=== PATIENT | female | born 1990 | race Caucasian/White ===

== ENCOUNTER 2018-10-17 16:49 | Inpatient (IN) | payer MEDICAID ==
--- NOTE | 2018-10-17 16:54 | EDPHY ---
H & P Time Seen by Provider: 10/17/18 16:52 HPI/ROS: CHIEF COMPLAINT: Suicidal ideation HISTORY OF PRESENT ILLNESS: Girlfriend called 911 because the patient overdosed on Ativan this morning and cut herself making suicidal statements. Off medications for 8 months. Denies taking other medications. She used a knife to make some superficial abrasions on her left wrist. She is here with her "ex-girlfriend." REVIEW OF SYSTEMS: Eye: no change in vision ENT: no sore throat Cardiac: No chest pain Pulmonary: no cough or SOB Abdomen: no vomiting, diarrhea, abdominal pain Musculoskeletal: no back pain Skin: Left arm superficial abrasions Neuro: no headache Constitutional: no fever : no urinary symptoms A comprehensive 10 point review of systems is otherwise negative aside from elements mentioned in the history of present illness. PAST MEDICAL HISTORY: Bipolar disorder Social history: No drug or alcohol General Appearance: Alert and conversant, cooperative. Eyes: No scleral icterus. ENT, Mouth: Normal mucous membranes. Respiratory: Normal respiratory effort, breath sounds equal, lungs are clear to auscultation. Cardiovascular: Regular rate and rhythm. Gastrointestinal: Abdomen is soft and non tender. Neurological: Alert, normal speech, ambulatory. Skin: Superficial nonsuturable linear abrasions transverse on the left distal volar forearm. Musculoskeletal: No extremity or spinal deformities. Psychiatric: Depressed affect, admits to suicidal ideation earlier, denies currently. Does hear her father's voice talking to her, he is currently . Emergency Department course/MDM: Arrives on a mental health hold, placed by police department. 2300: The patient will be transferred to [facility] for inpatient psychiatric hospital bed not available at this facility, in stable condition; accepting physician is Dr. Chopra. EMTALA form completed. Bipolar disorder with psychotic features. Smoking Status: Never smoked Constitutional: Initial Vital Signs Temperature (C) 36.7 C 10/17/18 17:05 Heart Rate 81 10/17/18 17:05 Respiratory Rate 16 10/17/18 17:05 Blood Pressure 128/76 H 10/17/18 17:05 O2 Sat (%) 97 10/17/18 17:05 O2 Delivery Mode Room Air Allergies/Adverse Reactions: No Known Allergies Allergy (Unverified 10/17/18 17:04) Home Medications: Medication Instructions Recorded Ativan 10/17/18 Medical Decision Making Differential Diagnosis: Differential diagnosis considered for depression including functional and major depression, situational depression, medication side effect, drugs and alcohol abuse. - Data Points Laboratory Results: Laboratory Results 10/17/18 17:35 10/17/18 17:35 10/17/18 10/17/18 10/17/18 17:35 17:35 17:35 WBC RBC Hgb Hct MCV MCH MCHC RDW Plt Count MPV Neut % (Auto) Lymph % (Auto) [place] % (Auto) Eos % (Auto) Baso % (Auto) Nucleat RBC Rel Count Absolute Neuts (auto) Absolute Lymphs (auto) Absolute Monos (auto) Absolute Eos (auto) Absolute Basos (auto) Absolute Nucleated RBC Immature Gran % Immature Gran # Sodium 140 mEq/L mEq/L (135-145) Potassium 4.3 mEq/L mEq/L (3.5-5.2) Chloride 106 mEq/L mEq/L (97-110) Carbon Dioxide 22 mEq/l mEq/l (22-31) Anion Gap 12 mEq/L mEq/L (6-14) BUN 11 mg/dL mg/dL (7-23) Creatinine 0.9 mg/dL mg/dL (0.6-1.0) Estimated GFR > 60 Glucose 90 mg/dL mg/dL (70-100) Calcium 10.1 mg/dL mg/dL (8.5-10.4) Beta HCG, Qual NEGATIVE Salicylates < 1.0 mg/dL L mg/dL (2.0-20.0) Urine Opiates Screen NEGATIVE (NEGATIVE) Acetaminophen < 10 mcg/mL L mcg/mL (10-30) Urine Barbiturates NEGATIVE (NEGATIVE) Ur Phencyclidine Scrn NEGATIVE (NEGATIVE) Ur Amphetamine Screen NEGATIVE (NEGATIVE) U Benzodiazepines Scrn NEGATIVE (NEGATIVE) Urine Cocaine Screen NEGATIVE (NEGATIVE) U Marijuana (THC) Screen NON-NEGATIVE H (NEGATIVE) Ethyl Alcohol < 10 mg/dL mg/dL (0-10) 10/17/18 17:35 WBC 6.29 10^3/uL 10^3/uL (3.80-9.50) RBC 5.26 10^6/uL 10^6/uL (4.18-5.33) Hgb 17.1 g/dL H g/dL (12.6-16.3) Hct 48.8 % H % (38.0-47.0) MCV 92.8 fL fL (81.5-99.8) MCH 32.5 pg pg (27.9-34.1) MCHC 35.0 g/dL g/dL (32.4-36.7) RDW 11.3 % L % (11.5-15.2) Plt Count 250 10^3/uL 10^3/uL (150-400) MPV 8.5 fL L fL (8.7-11.7) Neut % (Auto) 68.6 % % (39.3-74.2) Lymph % (Auto) 24.2 % % (15.0-45.0) [place] % (Auto) 5.2 % % (4.5-13.0) Eos % (Auto) 1.4 % % (0.6-7.6) Baso % (Auto) 0.3 % % (0.3-1.7) Nucleat RBC Rel Count 0.0 % % (0.0-0.2) Absolute Neuts (auto) 4.31 10^3/uL 10^3/uL (1.70-6.50) Absolute Lymphs (auto) 1.52 10^3/uL 10^3/uL (1.00-3.00) Absolute Monos (auto) 0.33 10^3/uL 10^3/uL (0.30-0.80) Absolute Eos (auto) 0.09 10^3/uL 10^3/uL (0.03-0.40) Absolute Basos (auto) 0.02 10^3/uL 10^3/uL (0.02-0.10) Absolute Nucleated RBC 0.00 10^3/uL 10^3/uL (0-0.01) Immature Gran % 0.3 % % (0.0-1.1) Immature Gran # 0.02 10^3/uL 10^3/uL (0.00-0.10) Sodium Potassium Chloride Carbon Dioxide Anion Gap BUN Creatinine Estimated GFR Glucose Calcium Beta HCG, Qual Salicylates Urine Opiates Screen Acetaminophen Urine Barbiturates Ur Phencyclidine Scrn Ur Amphetamine Screen U Benzodiazepines Scrn Urine Cocaine Screen U Marijuana (THC) Screen Ethyl Alcohol Departure - Departure Disposition: Other Psych, Not Tiffany Clinical Impression: Abrasion of left wrist, initial encounter, Suicidal ideation, Bipolar disorder with psychotic features Condition: Fair Referrals: Patient,NotPresent [Unknown] - As per Instructions
[2018-10-17 17:42] LABS: PLATELET COUNT 250 10^3/uL (150-400)
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
--- NOTE | 2018-10-17 23:22 | ASMTTCLDSP ---
TLC Discharge Disposition Disposition: Answers: Admit Disposition Notes: Notes: In consultation with [facility] ED physician, Jonah Butts MD and on-call psychiatrist, Fabian Chopra MD, both concurred that pt appears to meet 27-65 criteria requiring psychiatric hospitalization as pt appears to be at risk of harm to self due to a mental illness condition. Pt was read the Patient Rights and Responsibilities Statement (placed on chart ) and given photocopy of Rights@ 2300. Pt was given the 3[facility] prohibited belongings list while in the ED. Was patient given the Answers: Yes Inpatient Behavioral Health Prohibited Belongings List while in the ED? For inpatient Fabian Chopra MD admission, the following psychiatrist agreed to accept patient for admission to Behavioral Health ([facility]): Type of Hold: Answers: M1/72-hour Hold Hold initiated by: Answers: Police Date Signed: 10/17/2018 11:21 PM Electronically Signed By:Phong Beckwith
[2018-10-18] MEDS ORDERED: ACETAMINOPHEN 325 MG TAB PO PRN (02:42)
[2018-10-18] MEDS ORDERED: MAGNESIUM HYDROXIDE 30 ML UDCUP PO PRN (02:42)
[2018-10-18] MEDS ORDERED: NICOTINE POLACRILEX 2 MG GUM B PRN (02:42)
[2018-10-18] MEDS ORDERED: OLANZapine DISINTEGR 5 MG TAB PO PRN (02:42)
[2018-10-18] MEDS ORDERED: MAG HYDROX/AL HYDROX/SIMETH 30 ML UDCUP PO PRN (02:42)
--- NOTE | 2018-10-18 04:13 | GCON ---
[f rep st] CONSULTATION DATE OF CONSULTATION: 10/18/2018 SOURCE: Patient provides history, appears reliable. EMR was reviewed and case discussed with ED mental health provider. CHIEF COMPLAINT: Suicidal ideation. HISTORY OF PRESENT ILLNESS: This is a 28-year-old female with past medical history significant for bipolar disorder, who presents to the emergency department today after a phone call to 911. The patient reported an overdose on Ativan and cutting with suicidal statements. The patient has not been on medical therapy for bipolar disorder. Hospice consultation for medical management. She reports she is otherwise healthy, has not had any recent illnesses. No other physical complaints. She does smoke 6 or more cigarettes on a daily basis and utilizes marijuana. REVIEW OF SYSTEMS: Ten systems reviewed, negative except as noted above. ALLERGIES: No known drug allergies. HOME MEDICATIONS: Ativan. PAST MEDICAL HISTORY: Significant for bipolar disorder, tobacco use, marijuana use. PAST SURGICAL HISTORY: Patient denies. FAMILY HISTORY: Patient denies. SOCIAL HISTORY: The patient denies alcohol intake. She does report smoking quarter to half-pack per day and use of marijuana on regular basis. Denies any other illicit drugs. PHYSICAL EXAMINATION: VITALS: In the emergency department, blood pressure 102/ 64, heart rate 55, respiratory rate 18, O2 saturation 95% on room air, temperature 36.7. GENERAL: No acute distress. Pleasant adult female is resting quietly in bed, asleep. She wakes easily to name. HEAD: Normocephalic , atraumatic. EYES: Extraocular muscles grossly intact. Pupils equal, round, slightly decreased reactivity to light bilaterally, but symmetric. No scleral icterus, conjunctival injection. ENT: Mucous membranes appear moist. No oropharyngeal erythema or exudates. NECK: Supple. Trachea midline. CARDIOVASCULAR: Regular rate and rhythm. No murmurs, rubs, or gallops appreciated. RESPIRATORY: Lungs clear to auscultation bilaterally. No wheezes , rales, rhonchi. ABDOMEN Positive bowel sounds. Soft, nontender to palpation. No rebound, guarding, or masses appreciated. : No suprapubic tenderness to palpation. No Edmondson catheter in place. EXTREMITIES: No cyanosis , clubbing, or edema. 2+ pedal pulses. NEUROLOGIC: Grossly nonfocal. No facial drooping. Moves all extremities. LABORATORY STUDIES: WBC 6.29, H and H are 17.1 and 48.8, MCV 92.8, platelet count 250. No bands. Sodium 140, potassium 4.3, chloride 106, CO2 is 22, anion gap 12, BUN is 11, creatinine 0.9 GFR greater than 60, glucose is 90, calcium 10.1. Beta-hCG is negative. Salicylate less than 1 cm. Acetaminophen less than 10. Alcohol less than 10. Positive marijuana. Otherwise negative. ASSESSMENT AND PLAN: A pleasant 28-year-old female who presents with reported overdose and suicidal ideation. 1. Bipolar disorder, untreated. The patient to be admitted to [facility]. She has been cooperative during her emergency department stay. 2. Tobacco dependence, 14 mg transderm patch has been ordered. 3. Marijuana use. Thank you for this consultation. Please notify us if you have any questions. /[id number]/MODL MTDD
[2018-10-18] MEDS ORDERED: NICOTINE 14 MG/24 HR PATCH TD SCH (09:00)
[2018-10-18] MEDS: NICOTINE 14 MG/24 HR PATCH TD SCH (09:19)
--- NOTE | 2018-10-18 09:21 | PDMN ---
Medical Necessity Medical necessity: [facility] [id number], Bipolar Disorders, Adult: Inpatient Care, 4 days : 28 yo w/ bipolar I do, current episode depressed, moderate, on M1 hold for risk of harm to self. Admit IP BEH unit.
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
--- NOTE | 2018-10-18 15:03 | ASMTCMCOM ---
CM Note CM Note Notes: CC met with pt. to complete MTP. Pt. reports having a service dog and asked if it would be able to visit. Pt. reports having no providers or a PCP. Pt. reports she "lost my job, losing my apartment". Pt. reports having a number of job skills and reports it won't be hard to get a new job. Pt. reports wanting to "follow up with treatment". Pt. stated she would like to be back on her Bipolar medications, MD notified. Pt. denies any current legal issues. Pt. reports drinking alcohol 1-2 per week, having 2-3 drinks per sitting, adding her drinking is not an issue. Pt. reports using THC "daily" adding she uses concentrates and dabs. Pt. reports having a "dab pen" and has been using it frequently, Security notified. Pt. reports this being her first mental health hospitalization. Pt. agreed to being referred to P and to [facility] PCP. Pt. presents as alert, calm, friendly, good eye contact, appearing to want treatment, and cooperative. CC to ask pt. to sign [facility] AIMEE and then send out referral. CC to refer pt. to [facility] PCP. Date Signed: 10/18/2018 03:02 PM Electronically Signed By:Radha Saba
--- NOTE | 2018-10-18 18:49 | BAPA ---
[f rep st] ADMISSION PSYCHIATRIC ASSESSMENT DATE OF SERVICE: 10/18/2018 CHIEF COMPLAINT: "I've been having a hard time with my family. I just learned my biological dad today. I was hearing my dad's voice telling me to hurt myself. I felt I had to hurt myself to make it stop." HISTORY OF PRESENT ILLNESS: The patient is a 28-year-old woman, never , no children, unemployed, who presented to [facility] via EMS on an M1 hold placed by the docketing specialist's office. Supposedly, the docketing specialist's office was contacted by the patient's ex-girlfriend who said that the patient had "snap chatted her" a picture of her bloody arm with the words "make sure my dog finds a good home." The patient was placed on M1 hold by the learning officer who noted "respondent told me she had tried to overdose on pills earlier, was hearing her father speaking to her and she had cut her wrists with a paring knife to prove she needed help." Patient told the rn nursery in the ED that she had taken an overdose of Ativan the morning prior to her admission and cut herself. She said that she had been off medications for 8 months. Denies taking any other medications. She said that she only made superficial lacerations on her wrists and that she did it to prove that she needed help. She says that she has had multiple stressors including losing her job 2 weeks ago. She said that she has been staying at her girlfriend's house because she has nowhere else to live, that they have been fighting and decided to break up recently. She said that she also recently found out that her biological father had . She has had no contact with her biological father for a long time. On the inpatient psychiatry unit, the patient has been calm, cooperative , pleasant. When MD met with her, she was well groomed, appropriately attired. She made good eye contact. She reported that she was no longer having thoughts of hurting herself. She had no urges to self-harm. She had no intention or plan of hurting herself or anyone else. She said that she had been feeling depressed because so many things have happened to her at once. She had lost her job in [place]. She had moved to [place] to live with her girlfriend. Recently they broke up. The patient said that she had nowhere to go. She has a service animal that she is very attached to and she was afraid of being homeless with her service animal. She said it was "just a lot to deal with." Patient told MD that "the healthiest I've ever been in my life" was when she was taking Lexapro and Lamictal which had been prescribed for her the last time she was in the hospital at [facility] in [place]. She says she has been off all medications for 8 months and would like to get back on them. PAST PSYCHIATRIC HISTORY: As previously reported, the patient had been hospitalized at [facility] in [place]. In July 2017, she made a suicide attempt. She stayed in the hospital for 3 days. She was diagnosed with bipolar disorder and started on Lamictal and Lexapro. She said the best she ever felt in her life was during the time that she was on medication. However, the patient said that she went off all medications 8 months ago, says that she did not feel like she needed medications. She said that she also had a hard time getting an appointment to see an outpatient psychiatrist and says that she has been on a wait list for 3 months to get in to see somebody. The patient reported 1 prior suicide attempt by hanging when she was growing up, but says that her mom stopped her from acting on her plan. Patient has a history of self-harm. She reports that she has been cutting since she was a teenager. Most recently, she made superficial lacerations on her wrists on the day she was admitted to the hospital. ALLERGIES: The patient has no known drug allergies. CURRENT MEDICATIONS: The patient is not currently prescribed or taking any medications. The last time she was on medications was 8 months ago. She was taking Lamictal and Lexapro, but does not remember the doses. MEDICAL HISTORY: The patient reports no significant medical issues. She denies any prior surgeries. LABORATORY DATA: White cell count was 6.29, hemoglobin 17.1, hematocrit 48.8. Her chem panel was all within normal limits. Glucose was 90. Calcium was 10.1. Beta hCG was negative. Urine drug screen was positive for marijuana, negative for all other drugs of abuse. FAMILY HISTORY: Patient reports that her biological father was diagnosed with bipolar. She denies any other family history of mental illness or substance use. SOCIAL HISTORY: The patient is unmarried, no children. Her family lives in [place]. She has a younger brother, 25 years old. They are both close. Her parents have been . She reports that her biological father recently . She has had no contact with him for many years. She had been living in [place], was working as a nursing program coordinator. She said that she lost her job 2 weeks ago and came to [place] to be with her girlfriend, has been staying at her girlfriend's house. The patient says that she has many friends. She likes to work, drink alcohol and play with her dog. 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 SUBSTANCE USE HISTORY: Patient stated that she first started using marijuana when she was 18 years old. She says she smokes a bowl a day. She drinks occasionally with her friends but does not specify how much she drinks or how often. LEGAL HISTORY: The patient denies that she has any current legal issues. MENTAL STATUS EXAMINATION: This is a tall woman wearing glasses. Her hair is dyed green. She is wearing street clothes, pants and a T-shirt and a long sleeve sweater. She is alert and oriented x4. Her demeanor is calm and appropriate. She is pleasant. Her speech rate and volume are within normal limits. Her intellectual function appears to be average based upon her vocabulary, fund of knowledge and educational history. She is currently denying feeling sad, helpless, hopeless, worthless or anxious. She denies any thoughts, plans or intents to hurt herself or anyone else. She denies any symptoms of psychosis. There are no symptoms of isaac present. Her thought process is linear and goal directed. Her insight and judgment are both poor as evidenced by her history of self-harm and her recent attempt to overdose and cutting herself with a knife and then texting her girlfriend. IMPRESSION: 1. Adjustment disorder, mixed disturbance of conduct and mood. 2. Bipolar disorder type 2 by history. 3. Cannabis use disorder, severe. 4. Alcohol use disorder, unknown severity. 5. Rule out substance-induced mood disorder. PLAN: 1. Admit patient to the inpatient Behavioral Health Services Unit on an M1 hold. 2. Monitor closely for safety. The patient is currently not exhibiting any signs of unsafe behavior. She is acting appropriately. She denies any thoughts , plans or intents to hurt herself or anyone else. She says she is no longer having urges to self-harm. 3. Will continue to monitor and observe the patient. This MD did spend some time talking to the patient about her prior treatment with medications. She says the "healthiest I've ever been in my life" was when she was taking Lexapro and Lamictal. She says that she stopped 8 months ago, does not really provide a reason, says that she has had a hard time getting in to see a provider in [place]. She said that she would like to start receiving services and find a prescriber in [place]. She plans to stay in [facility]. She said that she would be interested in getting back on the Lamictal and possibly the Lexapro. She says that she started Lamictal first at [facility] because she was diagnosed as having bipolar disorder. She said the Lexapro was added later because she was having "such bad depression." MD discussed the risks, benefits and side effects of both medications with the patient. The patient gave informed consent to start Lamictal 25 mg p.o. daily tomorrow morning. The patient denied having any side effects when she was on Lamictal in the past. She denied ever experiencing a rash or any other symptoms associated with Aj-Frank syndrome. She said that she tolerated both medications well. 4. The patient said that she would like a referral to a local mental health service provider. She would like to start receiving individual psychotherapy again and she would also like to see a prescriber to monitor and adjust her medications as needed. 5. MD did spend some time counseling the patient about the risks associated with use of marijuana, alcohol and other mood-altering substances. MD discussed the potential adverse effects of marijuana for patients who have a predisposition towards a mood or psychotic disorder, including the risk of exacerbating depression, worsening mood, increasing mood lability and increasing thoughts of suicide. The patient stated that she was not interested in reducing or stopping use of marijuana at this time. She felt that the drug had a beneficial effect on her and she wanted to continue using it. 6. Estimated length of stay is 1-2 days. /[id number]/MODL MTDD
[2018-10-18] MEDS: LORazepam 0.5 MG TAB PO PRN (21:15)
[2018-10-19] MEDS: lamoTRIgine 25 MG TAB PO SCH (08:26)
[2018-10-19] MEDS: NICOTINE 14 MG/24 HR PATCH TD SCH (08:27)
--- NOTE | 2018-10-19 11:35 | ASMTCMCOM ---
CM Note CM Note Notes: Ct. was seen at team rounds. Ct. presented as pleasant and cooperative.Ct. reported that she'll be staying with friends when discharging. She reported that she feels better. She said that she is hoping to get back on meds. Referral was sent to [facility]. Date Signed: 10/19/2018 11:34 AM Electronically Signed By:Bette Oropeza
--- NOTE | 2018-10-19 15:20 | SOAPPROG ---
SOAP Progress Note Assessment/Plan: Assessment: Plan: 10/19/18 15:20 Mood/SI: Pt reports feeling better being in the hospital where she can process her stressors. She is active in therapeutic groups and is restarting meds. Will need to monitor this as well as her SI. Subjective: Pt seen, discussed with staff, chart reviewed, interviewed in Treatment Team meeting. She states she feels "a lot better." Discussed the stressors preceding admission and she identifies stopping her medications eight months ago as the primary factor in her decline. She states she has benefitted from being in the hospital, especially going to the groups and talking to other patients. She states she has talked to a friend in the community with whom she can stay after discharge. She requests restarting the Lexapro she took in the past. We discussed the possibility of precipitating isaac if it is started prior to the Lamictal being at a therapeutic dose and she states she wants to proceed "because I've been depressed for a really long time." MSE: Calm, coop. Affect is bright, stable, approp. Mood is "good." TP is linear. TC reveals no psychosis. She denies active SI at this time. Objective: Vital Signs Temp Pulse Resp BP Pulse Ox 36.6 C 85 16 106/63 97 10/19/18 06:00 10/19/18 06:00 10/19/18 06:00 10/19/18 06:00 10/19/18 06:00 - Time Spent With Patient Time Spent With Patient: 25" ICD10 Worksheet Patient Problems: Problems Problem Status Onset Abrasion of left wrist, initial encounter Acute Bipolar disorder with psychotic features Acute Suicidal ideation Acute
[2018-10-19] MEDS: LORazepam 0.5 MG TAB PO PRN (17:39)
[2018-10-20 06:47] VITALS: BP 103/61
[2018-10-20] MEDS ORDERED: ESCITALOPRAM OXALATE 10 MG TAB PO SCH (09:00)
[2018-10-20] MEDS: NICOTINE 14 MG/24 HR PATCH TD SCH (09:09)
[2018-10-20] MEDS: lamoTRIgine 25 MG TAB PO SCH (09:09)
--- NOTE | 2018-10-20 16:09 | ASMTCMCOM ---
CM Note CM Note Notes: Pt. reports feeling "good". Pt. stated she slept "okay" adding Zyprexa made her very tired. Pt. reports "my appetite came back". Pt. reports planning on going home and making a "healthy meal". Pt. reports no issues with her medications. Pt. reports attending groups today. Pt. reports no concerns about discharging. Pt. reports she is able to make her follow up appointments and fill and take her medications as prescribed. Pt. reports planning staying with her friend Radha, until her apartment is ready. Pt. reports she will use Uber to get home, pt. declined CC to arrange transport. Pt. reports she is planning on getting rid of her THC Dab pen. Pt. reports she "gained sense of clarity back" while in the hospital. Pt. presents as alert, calm, good eye contact, groomed, polite and cooperative. Staff report pt. sleeping 8 hours last evening and being medication compliant. Pt. has an intake appointment with [facility] on Friday10/23/18 at 8:30am. Pt. referred to [facility] PCP. Date Signed: 10/20/2018 04:08 PM Electronically Signed By:Radha Saba
--- NOTE | 2018-10-20 18:01 | BDS ---
[f rep st] BEHAVIORAL HEALTH DISCHARGE SUMMARY REASON FOR ADMISSION: Patient is a 28-year-old female with a history of bipolar disorder a nd substance use. She recently had a number of psychosocial stressors including losing her job and h er housing and breaking up with her partner. She made some threats of suicide and was brought to the hospital for evaluation. She has a previous history of suicide attempts and hospitalizations as wel l as self-mutilation. She had been off her medications for approximately 8 months. A full descripti on of events preceding admission can be found in her admission history dated 10/18/2018, per Dr. Chopra . ADMITTING DIAGNOSES: Per Dr. Chopra: 1. Adjustment disorder with mixed disturbance of conduct and mood. 2. Bipolar type 2 disorder by history. 3. Cannabis use disorder, severe. 4. Alcohol use disorder, severity unknown; rule out substance induced mood disorder. ADMITTING PHYSICAL EXAMINATION: Performed by Mary Anne Topete, revealed no acute physical findings. ADMISSION LABORATORY: CBC showed an H and H down at 17.1 and 48.8. Serum chemistries were normal. A1c was normal at 5.1. Liver function was normal. Beta hCG was negative. Urine drug screen is posi tive for marijuana. HOSPITAL COURSE: Patient was admitted to Behavioral Health Services inpatient unit on an M1 hold. S he was pleasant, cooperative, and engaging. She stated from the outset that she felt safe in the [facility] and wanted to participate in the therapeutic activities. There was a nice milieu of others genna und her age of the same gender with some of the same psychosocial issues. She seemed to benefit karol marley from interactions with them in a therapeutic environment. She requested that she be restarted on her Lexapro and Lamictal as these have been helpful to her in the past, and she stopped them 8 month s ago on her own. She notes that since that time, she has been much less stable. They were restarte d with standard titration of Lamictal and Lexapro at 10 mg. I did discuss with her the fact that if she was truly bipolar this could put her at risk for a switch to isaac, and she preferred to restart both at the same time due to the predominance of her depression. She tolerated the medicines initial ly with no side effects. The patient's hospitalization was uncomplicated. She participated actively in therapies and was in g ood behavioral control. CONDITION AT DISCHARGE: Stable. Her affect was euthymic, stable and appropriate and she was having no further thoughts of suicide. DISCHARGE MEDICATIONS: Lamictal 25 mg daily with a standard titration over 5 weeks to 100 mg, and Le xapro 10 mg daily. DISCHARGE DIAGNOSES: 1. Bipolar II disorder, most recent episode depressed. 2. Cannabis use disorder, severe. 3. Multiple psychosocial stressors including homelessness, lack of primary relationship. 4. Recurrent mental illness. 5. Treatment nonadherence. DISPOSITION: The patient left the hospital with a friend. FOLLOWUP: Followup is at [facility] as scheduled by the vocational childcare teacher on October 23. The patient is given written dates and times of her appointments at the time of discharge. The patient was a full code throughout her stay. Patient was discharged at the expiration of her M1 hold. The patient was administered nicotine, cannabis, metabolic and alcohol screenings. She stated that s he was not interested in pursuing further treatment for cannabis use disorder. She did state, rio gutierrez, that she would seek community resources to help her stop drinking as she believes this precipitate d some of her negative behaviors. There were no pending labs or studies at the time of discharge. /[id number]/MODL
== END 2018-10-20 16:36 | disposition home or self-care (01) | DRG 753 ==
LOC: BBEH 10-18 01:45
PROVIDERS: ADMIT Psychiatry & Neurology Psychiatry; ATTEND Psychiatry & Neurology Psychiatry
DX: F31.81 Bipolar II disorder (principal); F12.959 Cannabis use, unspecified with psychotic disorder, unspecified; T43.506A Underdosing of unspecified antipsychotics and neuroleptics, initial encounter; Z66 Do not resuscitate; F17.200 Nicotine dependence, unspecified, uncomplicated
CPT/HCPCS: 80305; G0480